=== PATIENT | male | born 1990 | race Caucasian/White ===

== ENCOUNTER 2017-07-07 11:51 | Emergency (ER) | payer SELFPAY ==
--- NOTE | 2017-07-07 12:11 | EDM.PDOC ---
ED HPI GENERAL MEDICAL PROBLEM - General Chief Complaint: Gastrointestinal Problem Stated Complaint: VOMITING BLOOD Time Seen by Provider: 07/07/17 12:03 Source of Information: Reports: Patient History Limitations: Reports: No Limitations - History of Present Illness INITIAL COMMENTS - FREE TEXT/NARRATIVE: 27-year-old male presents the ED stating that he's vomited up fresh blood 2 this morning. First time was after coughing hard he had quite a bit of red blood mixed with some sputum. Second time was. Blood and more than a handful with some clots. He has not yet eaten today. He has had some water this morning and he states it seemed to be watery mixed in the blood. He has not had any black tarry stools in the last several days. He denies feeling lightheaded or dizzy. He reportedly had an ulcer in his stomach years ago. He's had no stomach complaints as of late. He drinks 1-2 beers per week. He does chew tobacco does not smoke cigarettes. No previous abdominal surgery. He's been ill with a cold for the last week and is been coughing intermittently. No high fever chills or change in appetite. I.e. no signs or symptoms of influenza. Onset: Today Onset Date: 07/07/17 Onset Time: 09:00 (Second hematemesis occurred about an hour later.) Duration: Hour(s): Location: Reports: Abdomen (Vomiting bright red blood 2.) Quality: Reports: Other Severity: Moderate (Has no pain) Improves with: Reports: None Worsens with: Reports: None Context: Denies: Activity, Exercise, Lifting, Sick Contact, Trauma, Other Associated Symptoms: Reports: cough w sputum, Nausea/Vomiting (Vomited up bright red blood 2 this morning). Denies: Confusion, Chest Pain, Cough, Diaphoresis (Has been coughing for about a week. Has a cold), Fever/Chills, Headaches, Loss of Appetite, Malaise, Rash, Seizure, Shortness of Breath, Syncope, Weakness Treatments [employer]ER: Reports: NSAIDS (Uses Motrin usually 3 tablets at a time once or twice a week. Does not use aspirin) Oral/Mouth Pain Score (Numeric/FACES): 3 - Related Data Allergies Allergy/AdvReac Type Severity Reaction Status Date / Time Penicillins Allergy Other Verified 07/07/17 12:09 Home Meds: Home Meds Omeprazole [priLOSEC OTC] 20 mg PO DAILY #30 tab.sr 07/07/17 [Rx] Past Medical History Gastrointestinal History: Reports: PUD (Told he had an ulcer in the past and was treated with anti-) Social & Family History - Living Situation & Occupation Occupation: Employed ED ROS GENERAL - Review of Systems Review Of Systems: See Below Constitutional: Reports: Decreased Appetite (Perhaps a little decreased with his cold the last week.). Denies: Fever, Chills, Malaise, Weakness, Fatigue, Night Sweats, Weight Loss, Other HEENT: Reports: Rhinitis, Other (Nasal congestion. He has a lesion on his right lower lip. Examination shows this to be an epulis. .). Denies: Glasses Respiratory: Reports: Cough, Sputum (Occasionally productive cough this last week.). Denies: Shortness of Breath, Wheezing, Pleuritic Chest Pain ( Normally sputum is been light green to clear), Hemoptysis, Other Cardiovascular: Denies: Chest Pain, Blood Pressure Problem, Dyspnea on Exertion , Edema, Lightheadedness, Orthopnea Endocrine: Reports: Fatigue GI/Abdominal: Reports: Decreased Appetite, Hematemesis (2 today.). Denies: Abdominal Pain, Anorexia, Black Stool, Bloody Stool, Distension, Flatus : Reports: No Symptoms Musculoskeletal: Reports: No Symptoms Skin: Reports: Other (He has noticed some skin lumps on his left anterior leg and left abdomen. On checking these are lipomas.) Neurological: Reports: No Symptoms Psychiatric: Reports: No Symptoms Hematologic/Lymphatic: Reports: No Symptoms Immunologic: Reports: No Symptoms ED EXAM, GI/ABD - Physical Exam Exam: See Below Exam Limited By: No Limitations General Appearance: Alert, WD/WN, Anxious, Mild Distress Eyes: Bilateral: Normal Appearance Throat/Mouth: Normal Inspection, Normal Lips, Normal Oropharynx, Other (He does have an epulis right lower lip.) Head: Atraumatic, Normocephalic Neck: Normal Inspection, Supple, Non-Tender, Full Range of Motion. No: Lymphadenopathy (L), Lymphadenopathy (R) Respiratory/Chest: No Respiratory Distress, Lungs Clear, Normal Breath Sounds, No Accessory Muscle Use Cardiovascular: Normal Peripheral Pulses, Regular Rate, Rhythm, No Edema, No Gallop, No Murmur GI/Abdominal Exam: Normal Bowel Sounds, Soft, Non-Tender, No Organomegaly, No Abnormal Bruit, No Mass, Pelvis Stable, Other (No surgical scars) (Male) Exam: No Hernia Back Exam: Normal Inspection, Full Range of Motion. No: CVA Tenderness (L), CVA Tenderness (R) Extremities: Normal Inspection, Normal Range of Motion, Non-Tender, No Pedal Edema Neurological: Alert, Oriented, CN II-XII Intact, Normal Cognition, Normal Gait Psychiatric: Normal Affect, Normal Mood Skin Exam: Warm, Dry, Intact, Other (Several small lipomas anterior left thigh and one on his left lateral lower abdominal wall. Largest is on the abdominal wall is partially 1.5 cm in length and 1 cm in width.) Course - Vital Signs Last Recorded V/S: Last Vital Signs Temp 36.9 C 07/07/17 12:00 Pulse 70 07/07/17 12:00 Resp 20 07/07/17 12:00 BP 123/55 L 07/07/17 12:00 Pulse Ox 98 07/07/17 12:00 - Orders/Labs/Meds Orders: Active Orders 24 hr Category Date Time Status Orthostatic Vital Signs [RC] ASDIRECTED Care 07/07/17 12:13 Active Labs: Laboratory Tests 07/07/17 07/07/17 07/07/17 Range/Units 12:18 12:18 12:18 WBC 6.62 (4.23-9.07) K/mm3 RBC 5.33 (4.63-6.08) M/mm3 Hgb 16.1 (13.7-17.5) gm/L Hct 47.2 (40.1-51.0) % MCV 88.6 (79.0-92.2) fl MCH 30.2 (25.7-32.2) pg MCHC 34.1 (32.2-35.5) g/dl RDW Std Deviation 41.4 (35.1-43.9) fL Plt Count 403 H (163-337) K/mm3 MPV 8.6 L (9.4-12.3) fl Neutrophils % (Manual) 47 (40-60) % Band Neutrophils % 0 (0-10) % Lymphocytes % (Manual) 42 H (20-40) % Atypical Lymphs % 0 % Monocytes % (Manual) 8 (2-10) % Eosinophils % (Manual) 2 (0.8-7.0) % Basophils % (Manual) 1 (0.2-1.2) Platelet Estimate Adequate RBC Morph Comment Normal PT 10.3 (8.0-13.0) SECONDS INR 0.95 APTT 26 (22-36) SECONDS Sodium 141 (136-145) mEq/L Potassium 3.7 (3.5-5.1) mEq/L Chloride 103 (98-107) mEq/L Carbon Dioxide 28 (21-32) mEq/L Anion Gap 13.7 (5-15) BUN 11 (7-18) mg/dL Creatinine 0.9 (0.7-1.3) mg/dL Est Cr Clr Drug Dosing 114.25 mL/min Estimated GFR (MDRD) > 60 (>60) mL/min BUN/Creatinine Ratio 12.2 L (14-18) Glucose 94 (74-106) mg/dL Calcium 9.2 (8.5-10.1) mg/dL Total Bilirubin 0.3 (0.2-1.0) mg/dL AST 31 (15-37) U/L ALT 53 (16-63) U/L Alkaline Phosphatase 64 (46-116) U/L Total Protein 8.0 (6.4-8.2) g/dl Albumin 4.3 (3.4-5.0) g/dl Globulin 3.7 gm/dL Albumin/Globulin Ratio 1.2 (1-2) Amylase 59 (25-115) U/L H. pylori IgG Antibody (NEGATIVE) 07/07/17 Range/Units 12:18 WBC (4.23-9.07) K/mm3 RBC (4.63-6.08) M/mm3 Hgb (13.7-17.5) gm/L Hct (40.1-51.0) % MCV (79.0-92.2) fl MCH (25.7-32.2) pg MCHC (32.2-35.5) g/dl RDW Std Deviation (35.1-43.9) fL Plt Count (163-337) K/mm3 MPV (9.4-12.3) fl Neutrophils % (Manual) (40-60) % Band Neutrophils % (0-10) % Lymphocytes % (Manual) (20-40) % Atypical Lymphs % % Monocytes % (Manual) (2-10) % Eosinophils % (Manual) (0.8-7.0) % Basophils % (Manual) (0.2-1.2) Platelet Estimate RBC Morph Comment PT (8.0-13.0) SECONDS INR APTT (22-36) SECONDS Sodium (136-145) mEq/L Potassium (3.5-5.1) mEq/L Chloride (98-107) mEq/L Carbon Dioxide (21-32) mEq/L Anion Gap (5-15) BUN (7-18) mg/dL Creatinine (0.7-1.3) mg/dL Est Cr Clr Drug Dosing mL/min Estimated GFR (MDRD) (>60) mL/min BUN/Creatinine Ratio (14-18) Glucose (74-106) mg/dL Calcium (8.5-10.1) mg/dL Total Bilirubin (0.2-1.0) mg/dL AST (15-37) U/L ALT (16-63) U/L Alkaline Phosphatase (46-116) U/L Total Protein (6.4-8.2) g/dl Albumin (3.4-5.0) g/dl Globulin gm/dL Albumin/Globulin Ratio (1-2) Amylase (25-115) U/L H. pylori IgG Antibody Negative (NEGATIVE) Meds: Medications Discontinued Medications Generic Name Dose Route Start Last Admin Trade Name Freq PRN Reason Stop Dose Admin Dextrose/Sodium Chloride 1,000 mls @ 999 mls/hr 07/07/17 12:15 07/07/17 12:23 Dextrose 5%-Normal Saline IV 999 mls/hr ASDIRECTED LUPE Administration Pantoprazole Sodium 80 mg/ 100 mls @ 10 mls/hr 07/07/17 12:15 07/07/17 12:30 Sodium Chloride IV 10 mls/hr Q10H LUPE Administration Pantoprazole Sodium 40 mg 07/07/17 12:12 07/07/17 12:24 Protonix Iv IVPUSH 07/07/17 12:13 40 mg ONETIME ONE Administration - Radiology Interpretation Free Text/Narrative:: 19-year-old male presents to the ED after vomiting bright red blood 2 this morning. Initial one was with coughing but the second spontaneous and was blood mixed with water. Both have were bright red in color. He's had no abdominal pain or signs or symptoms to suggest an ulcer. He does not drink much alcohol 2 or 3 beers a week perhaps. Occasional use of Motrin. She was tobacco. Does not smoke cigarettes. Color looks good and he is asymptomatic otherwise. Vital signs show a lying blood pressure is 131/65 with a heart rate of 64 sitting his blood pressure is 122/77 with thyroid of 66 and standing his blood pressure is 133/71 with a heart rate of 72. I.e. he is not orthostatic. Plan he'll be started on Protonix 40 mg IV bolus and Protonix drip. Labs to be drawn to include H. pylori. - Re-Assessments/Exams Free Text/Narrative Re-Assessment/Exam: 07/07/17 13:16 Labs reveal a normal white count at 6.62. Hemoglobin is good at 16.1 with hematocrit of 47.2. MCV is normal at 88.6. Platelet count is normal at 403,000 in fact it's a little high. Differential of the white count is pending. PT is 10.3 with an INR of 0.95. PTT is 26. Sodium is 141 with a potassium of 3.7. Chloride 103 with a bicarbonate of 28. Anion gap is 13.7. BUN is 11 with a creatinine of 0.9. GFR is greater than 60. Glucose is 94. Liver function normal amylase 59. H. pylori was negative. 07/07/17 13:16 The lab work is at least a significant upper GI bleed as the BUN is normal at 11. This suggests likely benign source of upper GI bleeding. H. pylori was also negative. Offered the patient hospitalization with a view to upper GI endoscopy tomorrow but he declined. He would like to try things at home. From the history I'm inclined to believe that he ruptured a blood vessel from coughing as 1520 minutes later he had a second he met emesis. Is otherwise in good color he does not appear to be ill and his BUN being 11 suggests that he did not have a significant upper GI bleed. History suggests that he ruptured a blood vessel in the hypopharynx or in the stomach from coughing so hard. I'm going to discharge him to home he will rest for the next few days without any heavy lifting pushing pulling or exertional activities to blow off any clot from a vessel. I will place him on Prilosec 20 mg a day for the next month. He will declined use of alcohol Motrin and aspirin for the next week. If he has any further similar bleeding however he will return immediately to the hospital. Departure - Departure Time of Disposition: 13:33 Disposition: Home, Self-Care 01 Condition: Fair Clinical Impression: Upper GI bleed - Discharge Information Prescriptions: Omeprazole [priLOSEC OTC] 20 mg PO DAILY #30 tab.sr Instructions: Gastrointestinal Bleeding, [id number] Referrals: PCP,None [Primary Care Provider] - Forms: ED Department Discharge, ED Return to Work/School Form Additional Instructions: Evaluation in the emergency room today in regards to initial cough that seemed to produce a multiple blood and then a second he met emesis 20 minutes later that was all blood next with little water suggesting it came from the stomach. Recently been ill with a cold for the last week. Lab tests that do not reveal any evidence of low blood infected hemoglobin today was 17.1. Negative investigations for bacterial infection of the stomach that causes most ulcers. Stable vital signs as well while in the ED. The history suggests that you broke a vein with the initial cough and then of course of blood further causing you to bring up further blood 20 minutes later. I suspect the clots is now formed on this vein and it will heal on its own over the next 4-5 days as long as you don't have to cough severely or do anything exertional that may be partially clogged off. Therefore I am going to let you go home as long as you take life easy in terms of minimal lifting pushing pulling or carrying or exertional activities for the next 4 days. The second 20 mg once a day at bedtime for 30 days to heal any ulcer of the food pipe or stomach. No alcohol, aspirin, Motrin for at least one week. Of course if you have any similar type bleeding you need to return to the ED. If you bled significantly you a notice that her stool turned black in color once or twice but after that it should be back to normal color. - My Orders Last 24 Hours: My Active Orders 07/07/17 12:13 Orthostatic Vital Signs [RC] ASDIRECTED - Assessment/Plan Last 24 Hours: My Active Orders 07/07/17 12:13 Orthostatic Vital Signs [RC] ASDIRECTED
[2017-07-07] MEDS ORDERED: Pantoprazole 40 MG Vial IVPUSH ONE (12:12)
[2017-07-07] MEDS ORDERED: Pantoprazole 80 MG in Sodium Chloride 0.9% 100 ML IV SCH (12:15)
[2017-07-07] MEDS ORDERED: Dextrose 5%-0.9% NaCl 1,000 ML IV SCH (12:15)
--- NOTE | 2017-07-07 14:06 | CR ---
Chest: Frontal view of the chest was obtained. Comparison: No prior chest x-rays available. Heart size and mediastinum are normal. Lungs are clear. Bony structures are grossly intact. Impression: 1. Nothing acute is identified on frontal chest x-ray. Diagnostic code #1
== END 2017-07-07 14:05 | disposition home or self-care (01) ==
LOC: JD.ED 11:51
DX: K92.2 Gastrointestinal hemorrhage, unspecified (principal); Z79.899 Other long term (current) drug therapy; Z88.0 Allergy status to penicillin
CPT/HCPCS: 36415; 71045; 80053; 82150; 85025; 85610; 85730; 86677; 96365; 96376; 99284; C9113; J7030; J7042

== ENCOUNTER 2018-01-11 16:26 | Emergency (ER) | payer OTHER ==
[2018-01-11] MEDS ORDERED: Pantoprazole 40 MG Tab.CR PO ONE (18:31)
--- NOTE | 2018-01-11 18:41 | EDM.PDOC ---
ED HPI GENERAL MEDICAL PROBLEM - General Chief Complaint: Gastrointestinal Problem Stated Complaint: BLOOD IN STOOL AND VOMITING BLOOD Time Seen by Provider: 01/11/18 16:59 Source of Information: Reports: Patient History Limitations: Reports: No Limitations - History of Present Illness INITIAL COMMENTS - FREE TEXT/NARRATIVE: Patient is a 27-year-old male who presents the ED complaining of intermittent episodes of blood in the stool, and small amount of blood within his emesis. Patient quit taking Prilosec on his own without any follow-up after his last ED visit. Has some faint left upper quadrant/epigastric discomfort described as some mild acid reflux. Similar to previous episodes. Both episodes of blood within the emesis and stool were faint. He's had no dark tarry stools. He's been diagnosed with gastritis. He has not followed with the primary care provider or headache EGD/colonoscopy scheduled as well. Of note prior to the emesis she did have a bloody nose and has noticed some sinus congestion and runny nose as a recent. There's been no documented fever. No recent out of country travel. No ingestion of battery questionable food. There is no chest pain, shortness of breath, coughing, history of TB, dizziness, syncope, or any additional complaints. Patient does work outside all patch and states she's been drinking any fluids. He has no additional past medical history and currently taking no medications. Surgical history none. Patient consumes alcohol 2 times a week. No smoking history. No recreational drug use. Patient's PCP is in [place]. Left Lower Abdominal Pain Score (Numeric/FACES): 3 - Related Data Allergies Allergy/AdvReac Type Severity Reaction Status Date / Time Penicillins Allergy Other Verified 01/11/18 16:35 Home Meds: Home Meds Omeprazole [priLOSEC OTC] 20 mg PO DAILY #30 tab.sr 07/07/17 [Rx] Albuterol [Proventil HFA] 200 puff INH Q4H PRN #1 inhaler 01/11/18 [Rx] Past Medical History Gastrointestinal History: Reports: PUD Musculoskeletal History: Reports: Other (See Below) Other Musculoskeletal History: right hamstring surgery Social & Family History - Tobacco Use Smoking Status *Q: Never Smoker - Caffeine Use Caffeine Use: Reports: Energy Drinks, Soda, Tea - Recreational Drug Use Recreational Drug Use: No - Living Situation & Occupation Occupation: Employed ED ROS GENERAL - Review of Systems Review Of Systems: See Below Constitutional: Reports: Decreased Appetite. Denies: Fever, Chills, Malaise, Weakness Respiratory: Reports: No Symptoms GI/Abdominal: Reports: Abdominal Pain (epigastric), Bloody Stool, Decreased Appetite, Hematemesis, Nausea, Vomiting. Denies: Black Stool, Constipation, Diarrhea : Reports: No Symptoms Musculoskeletal: Reports: No Symptoms Skin: Reports: No Symptoms Neurological: Denies: Confusion, Dizziness, Headache, Numbness, Tingling, Difficulty Walking ED EXAM, GI/ABD - Physical Exam Exam: See Below Exam Limited By: No Limitations General Appearance: Alert, WD/WN, No Apparent Distress Ears: Hearing Grossly Normal Nose: Normal Inspection Throat/Mouth: Normal Inspection, Normal Oropharynx, Normal Voice, No Airway Compromise Head: Atraumatic, Normocephalic Neck: Normal Inspection, Supple Respiratory/Chest: No Respiratory Distress, Lungs Clear, Normal Breath Sounds, No Accessory Muscle Use Cardiovascular: Normal Peripheral Pulses, Regular Rate, Rhythm GI/Abdominal Exam: Normal Bowel Sounds, Soft, No Distention, Tender (To the epigstragic region. ) (Male) Exam: Deferred (no complaints. ) Rectal (Males) Exam: Deferred (deferred. ), Other (picture by patient illustrated positive erica red blood in stool. ). No: Hemorrhoids Extremities: Normal Inspection, Normal Range of Motion, Non-Tender Neurological: Alert, Oriented, CN II-XII Intact, Normal Cognition, No Motor/ Sensory Deficits Psychiatric: Normal Affect, Normal Mood Skin Exam: Warm, Dry, Intact, Normal Color Course - Vital Signs Last Recorded V/S: Last Vital Signs Temp 98 F 01/11/18 16:33 Pulse 91 01/11/18 16:33 Resp 16 01/11/18 16:33 BP 146/82 H 01/11/18 16:33 Pulse Ox 98 01/11/18 16:33 - Orders/Labs/Meds Labs: Laboratory Tests 01/11/18 01/11/18 01/11/18 Range/Units 18:48 18:48 18:48 WBC 10.76 H (4.23-9.07) K/mm3 RBC 4.95 (4.63-6.08) M/mm3 Hgb 15.1 (13.7-17.5) gm/L Hct 44.3 (40.1-51.0) % MCV 89.5 (79.0-92.2) fl MCH 30.5 (25.7-32.2) pg MCHC 34.1 (32.2-35.5) g/dl RDW Std Deviation 40.7 (35.1-43.9) fL Plt Count 411 H (163-337) K/mm3 MPV 8.7 L (9.4-12.3) fl Neutrophils % (Manual) 63 H (40-60) % Band Neutrophils % 0 (0-10) % Lymphocytes % (Manual) 31 (20-40) % Atypical Lymphs % 0 % Monocytes % (Manual) 4 (2-10) % Eosinophils % (Manual) 2 (0.8-7.0) % Basophils % (Manual) 0 L (0.2-1.2) Platelet Estimate Adequate RBC Morph Comment Normal PT 10.2 (9.5-12.1) SECONDS INR 0.93 APTT 25 (24-31) SECONDS Sodium 142 (136-145) mEq/L Potassium 3.3 L (3.5-5.1) mEq/L Chloride 105 (98-107) mEq/L Carbon Dioxide 28 (21-32) mEq/L Anion Gap 12.3 (5-15) BUN 12 (7-18) mg/dL Creatinine 1.0 (0.7-1.3) mg/dL Est Cr Clr Drug Dosing 99.24 mL/min Estimated GFR (MDRD) > 60 (>60) mL/min BUN/Creatinine Ratio 12.0 L (14-18) Glucose 94 (74-106) mg/dL Calcium 9.0 (8.5-10.1) mg/dL Total Bilirubin 0.3 (0.2-1.0) mg/dL AST 24 (15-37) U/L ALT 46 (16-63) U/L Alkaline Phosphatase 65 (46-116) U/L C-Reactive Protein < 0.2 (<1.0) mg/dL Total Protein 7.6 (6.4-8.2) g/dl Albumin 3.9 (3.4-5.0) g/dl Globulin 3.7 gm/dL Albumin/Globulin Ratio 1.1 (1-2) Lipase 153 (73-393) U/L Meds: Medications Discontinued Medications Generic Name Dose Route Start Last Admin Trade Name Jayq PRN Reason Stop Dose Admin Al Hydroxide/Mg Hydroxide 30 0 ml 01/11/18 20:07 01/11/18 20:54 ml/ Lidocaine HCl 15 ml PO 01/11/18 20:08 45 ml ONETIME ONE Administration Pantoprazole Sodium 40 mg 01/11/18 18:31 01/11/18 18:42 Protonix PO 01/11/18 18:32 40 mg ONETIME ONE Administration - Re-Assessments/Exams Free Text/Narrative Re-Assessment/Exam: Initial labs and studies will include: CBC, chem 14, CRP, lipase, coag studies, and chest x-ray one view. Ordered Protonix 40 mg by mouth. CXR: reviewed with Dr. Davila did not see any acute findings. Final interpretation is pending. WBC 10.76, platelet 411, N% 63, Na 142, K 3.3, cr 1.0, CRP <0.2, and lipase 153. Patient is feeling better. Minimal pain to the epigastric region. Similar symptoms to previous E.D. visit. Patient quit taking the PPI without any followup. He was instructed to take prilosec 40mg every a.m. until evaluated by general surgeon consult. In addition will take zantac 150mg PO every evening as well. Diet was discussed in great detail. The patient remained hemodynamically stable while under my care in the E.D. I discussed the concerning symptoms for which to return to the E.D. with the patient. The patient verbalized understanding and agreed with plan. All questions were answered. Departure - Departure Time of Disposition: 20:36 Disposition: Home, Self-Care 01 Condition: Good Clinical Impression: Upper GI bleed, PUD (peptic ulcer disease) - Discharge Information Prescriptions: Albuterol [Proventil HFA] 200 puff INH Q4H PRN #1 inhaler PRN Reason: Dyspnea Instructions: Peptic Ulcer, [id number], Heartburn, Gastrointestinal Bleeding , Abdominal Pain, Adult, [id number], Peptic Ulcer Eating Plan Referrals: Cuong Culp MD [Physician] - David Lim MD [Physician] - Forms: ED Department Discharge, ED Return to Work/School Form Additional Instructions: Take prilosec 40 mg every a.m. 1/2 hr prior to breakfast until evaluated by general surgeon for EGD/Colonoscopy. Take zantac 150mg every evening prior to dinner until evaluated by general surgeon. Take maalox intermittently throughout the day as needed. Refrain from consuming spicy foods, caffeinated beverages, chocolates, or any other aggravating foods. Do not eat or drink within 4 hours ago in the bed. Refrain from alcohol use. Please call make an appointment general surgeon for EGD/colonoscopy. Return to the ED if you develops any new or worsening symptoms.
[2018-01-11] MEDS ORDERED: Alum Hydrox/Mag Hydrox/Simeth 30 ML, Lidocaine 2% 15 ML PO ONE ×2 (20:07)
--- NOTE | 2018-01-12 17:16 | CR ---
Chest: Portable view of the chest was obtained. Comparison: Prior chest x-ray of 07/07/17. Heart size and mediastinum are within normal limits for portable technique. Lungs are clear. Bony structures appear grossly intact. Impression: 1. Nothing acute is identified on portable chest x-ray. Diagnostic code #1
== END 2018-01-11 20:56 | disposition home or self-care (01) ==
LOC: JD.ED 16:26
DX: K92.2 Gastrointestinal hemorrhage, unspecified (principal); Z88.0 Allergy status to penicillin; Z79.899 Other long term (current) drug therapy
CPT/HCPCS: 36415; 71045; 80053; 83690; 85007; 85027; 85610; 85730; 86140; 99285; A9270; 99284

== ENCOUNTER 2018-07-22 11:03 | Emergency (ER) | payer BC, OTHER ==
--- NOTE | 2018-07-22 11:20 | EDM.PDOC ---
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 He states he has similar symptoms since December, but recently has been getting worse with blood now showing up. He also had an episode this morning where he felt his body "froze" and didn't remember anything x1 minute. Roommate said he thought he may of had a seizure. He has no previous h/o seizure. He currently complains of wheezing (h/o asthma but not currently using inhaler), SOB, vomited x1 this AM, diarrhea w/ BRB this AM, decreased appetite but w/ recent weight gain. He denies any F/C, dizziness/lightheadedness, nausea , current abdominal pain, hemorrhoids, anal fissure, CP, constipation, or other GI/ complaints. No h/o Crohn's, UC. He reportedly had an ulcer in his stomach years ago. He was seen here twice since 06/2017 with no f/u w/ PCP or General Surgeon for endoscopy and he stopped taking the prescribed Prilosec from his last ED visit. No family h/o diagnosed GI issues, but did say his mom is currently being worked up for Crohn's. He does admit to drinking, had 1.5 drinks last night. Denies any illicit drug use. He is not a smoker. No recent antibiotic use. No recent sick contacts. No recent travel or new food. He does not have a PCP here in town. He is from [place] but has has lived here 3 years. We need to set up a PCP here for him. He would like a refill of his inhaler. - Related Data Allergies Allergy/AdvReac Type Severity Reaction Status Date / Time Penicillins Allergy Other Verified 07/22/18 11:09 Home Meds: Home Meds Albuterol Sulfate [Albuterol Sulfate Hfa] 8.5 gm IH ASDIRECTED #1 hfa.[email or web address] [Rx] Past Medical History Respiratory History: Reports: Asthma Gastrointestinal History: Reports: PUD Musculoskeletal History: Reports: Other (See Below) Other Musculoskeletal History: right hamstring surgery Social & Family History - Caffeine Use Caffeine Use: Reports: Energy Drinks, Soda, Tea - Recreational Drug Use Recreational Drug Use: No - Living Situation & Occupation Occupation: Employed ED ROS GENERAL - Review of Systems Review Of Systems: See Below Constitutional: Reports: Decreased Appetite, Weight Gain. Denies: Fever, Chills HEENT: Reports: Sinus Problem Respiratory: Reports: Shortness of Breath, Wheezing, Cough, Hemoptysis (blood- tinged sputum) Cardiovascular: Reports: No Symptoms. Denies: Chest Pain, Blood Pressure Problem Endocrine: Reports: No Symptoms GI/Abdominal: Reports: Abdominal Pain (intermittent), Bloody Stool (BRB), Diarrhea, Vomiting (x1 this AM). Denies: Constipation, Nausea : Reports: No Symptoms Musculoskeletal: Reports: No Symptoms Skin: Reports: No Symptoms Neurological: Reports: No Symptoms. Denies: Confusion, Dizziness Psychiatric: Reports: No Symptoms Hematologic/Lymphatic: Reports: No Symptoms Immunologic: Reports: No Symptoms ED EXAM, GI/ABD - Physical Exam Exam: See Below Exam Limited By: No Limitations General Appearance: Alert, WD/WN, No Apparent Distress Eyes: Bilateral: Normal Appearance, EOMI Ears: Normal External Exam Nose: Normal Inspection, Normal Mucosa, No Blood Throat/Mouth: Normal Inspection, Normal Lips, Normal Teeth, Normal Gums, Normal Oropharynx, Normal Voice, No Airway Compromise Head: Atraumatic, Normocephalic Neck: Normal Inspection, Supple, Non-Tender, Full Range of Motion Respiratory/Chest: No Respiratory Distress, Lungs Clear, Normal Breath Sounds, No Accessory Muscle Use, Chest Non-Tender Cardiovascular: Normal Peripheral Pulses, Regular Rate, Rhythm, No Edema, No Gallop, No JVD, No Murmur, No Rub GI/Abdominal Exam: Normal Bowel Sounds, Soft, Non-Tender, No Organomegaly, No Distention, No Abnormal Bruit, No Mass, Pelvis Stable. No: Guarding, Rebound (Male) Exam: Deferred Rectal (Males) Exam: Normal Exam, Normal Rectal Tone, Prostate Normal, Heme + Stool, Other (no hemorrhoids ). No: Hemorrhoids, Rectal Fissure Back Exam: Normal Inspection Extremities: Normal Inspection, Normal Range of Motion, Non-Tender, Normal Capillary Refill, No Pedal Edema Neurological: Alert, Oriented, CN II-XII Intact, Normal Cognition, Normal Gait, Normal Reflexes, No Motor/Sensory Deficits Psychiatric: Normal Affect, Normal Mood Skin Exam: Warm, Dry, Intact, Normal Color, No Rash Course - Vital Signs Last Recorded V/S: Last Vital Signs Temp 97.8 F 07/22/18 11:10 Pulse 80 07/22/18 11:10 Resp 16 07/22/18 11:10 BP 129/83 07/22/18 11:10 Pulse Ox 98 07/22/18 11:10 - Orders/Labs/Meds Orders: Active Orders 24 hr Category Date Time Status Abdomen 1V Upright [CR] Stat Exams 07/22/18 11:51 Taken Chest 1V Frontal [CR] Stat Exams 07/22/18 11:51 Taken COMPREHENSIVE METABOLIC PN,CMP [CHEM] Stat Lab 07/22/18 12:10 Results Labs: Laboratory Tests 07/22/18 07/22/18 07/22/18 Range/Units 12:10 12:10 12:10 WBC 6.49 (4.23-9.07) K/mm3 RBC 5.26 (4.63-6.08) M/mm3 Hgb 15.9 (13.7-17.5) gm/L Hct 46.6 (40.1-51.0) % MCV 88.6 (79.0-92.2) fl MCH 30.2 (25.7-32.2) pg MCHC 34.1 (32.2-35.5) g/dl RDW Std Deviation 40.4 (35.1-43.9) fL Plt Count 359 H (163-337) K/mm3 MPV 8.5 L (9.4-12.3) fl Neut % (Auto) 52.5 (34.0-67.9) % Lymph % (Auto) 32.2 (21.8-53.1) % Snyder % (Auto) 11.4 (5.3-12.2) % Eos % (Auto) 1.5 (0.8-7.0) Baso % (Auto) 0.9 (0.1-1.2) % Neut # (Auto) 3.40 (1.78-5.38) K/mm3 Lymph # (Auto) 2.09 (1.32-3.57) K/mm3 Snyder # (Auto) 0.74 (0.30-0.82) K/mm3 Eos # (Auto) 0.10 (0.04-0.54) K/mm3 Baso # (Auto) 0.06 (0.01-0.08) K/mm3 D-Dimer, Quantitative 0.22 (0.19-0.50) mg/L Sodium 140 (136-145) mEq/L Potassium 3.7 (3.5-5.1) mEq/L Chloride 103 (98-107) mEq/L Carbon Dioxide 26 (21-32) mEq/L Anion Gap 14.7 (5-15) BUN 14 (7-18) mg/dL Creatinine 1.0 (0.7-1.3) mg/dL Est Cr Clr Drug Dosing 101.90 mL/min Estimated GFR (MDRD) > 60 (>60) mL/min BUN/Creatinine Ratio 14.0 (14-18) Glucose 102 (74-106) mg/dL Calcium 9.0 (8.5-10.1) mg/dL - Re-Assessments/Exams Free Text/Narrative Re-Assessment/Exam: 07/22/18 12:06 I have ordered CBC, CMP, D-dimer, Stool WBC, CXR, Ab XR 07/22/18 12:22 Stool Guaiac positive. No evidence of rectal fissure or hemorrhoids on exam. 07/22/18 13:01 Labs are back and WNL. CXR and Abdominal Xray reviewed by Dr. Quezada and myself. No acute findings. Since he is stable and everything has come back WNL, will go ahead and D/C the Stool WBC and recommend he f/u with PCP and General Surgeon for Endoscopy, as previously recommended by the two other ED providers on his prior visits. Departure - Departure Time of Disposition: 13:08 Disposition: Home, Self-Care 01 Condition: Good Clinical Impression: Vomiting, Diarrhea, Abdominal pain, Cough with hemoptysis - Discharge Information *PRESCRIPTION DRUG MONITORING PROGRAM REVIEWED*: Not Applicable *COPY OF PRESCRIPTION DRUG MONITORING REPORT IN PATIENT IGOR: Not Applicable Prescriptions: Albuterol Sulfate [Albuterol Sulfate Hfa] 8.5 gm IH ASDIRECTED #1 hfa.aer.ad Instructions: Cough, Adult, [id number], Upper Endoscopy, Abdominal Pain, Adult, [id number], Bloody Diarrhea Referrals: Veronica Cruz MD [Physician] - Cuong Culp MD [Physician] - Forms: ED Department Discharge Additional Instructions: You were seen today in the ED for cough w/ blood and diarrhea w/ bright red blood. You work up here was essentially negative for any emergency. It is recommended that you follow up with a primary care provider, we have recommended Dr. Cruz. You can call to make an appointment with her at . Please also call to make an appointment general surgeon, Dr. Culp, for EGD/colonoscopy at [phone]. Please return to the ED if any new or worsening of symptoms. You will also receive a prescription for an albuterol inhaler. Please follow up with primary care for future prescriptions. - My Orders Last 24 Hours: My Active Orders 07/22/18 11:51 Abdomen 1V Upright [CR] Stat Chest 1V Frontal [CR] Stat 07/22/18 12:10 COMPREHENSIVE METABOLIC PN,CMP [CHEM] Stat - Assessment/Plan Last 24 Hours: My Active Orders 07/22/18 11:51 Abdomen 1V Upright [CR] Stat Chest 1V Frontal [CR] Stat 07/22/18 12:10 COMPREHENSIVE METABOLIC PN,CMP [CHEM] Stat
--- NOTE | 2018-07-23 13:59 | CR ---
Chest: PA view of the chest was obtained. Comparison: Prior chest x-ray of 01/11/18. Heart size and mediastinum are normal. Lungs are clear. Bony structures are unremarkable. Impression: 1. Nothing acute is seen on PA chest x-ray. Diagnostic code #1
--- NOTE | 2018-07-23 13:59 | CR ---
Abdomen: Upright view of the abdomen was obtained. Comparison: No previous study. Several air-fluid levels are seen within small bowel within the left abdomen. This small bowel does not appear dilated and is likely incidental. Scattered gas noted within the colon which appears unremarkable. Bony structures appear within normal limits. No free air is seen. No abnormal calcifications are seen. Impression: 1. Incidental findings. Nothing acute is seen. Diagnostic code #2
== END 2018-07-22 13:33 | disposition home or self-care (01) ==
LOC: JD.ED 11:03
DX: R19.7 Diarrhea, unspecified (principal); R11.10 Vomiting, unspecified; R04.2 Hemoptysis; R19.5 Other fecal abnormalities; R10.9 Unspecified abdominal pain
CPT/HCPCS: 36415; 71045; 71045-26; 74018; 74018-26; 80053; 85025; 85379; 99283; 99285